=== PATIENT | female | born 1940 | race Caucasian/White ===

== ENCOUNTER 2023-10-19 16:26 | Emergency (ER) | payer MEDICARE, OTHER, SELFPAY ==
[2023-10-19 16:28] VITALS: BP 115/92; BMI 27.3
[2023-10-19 16:49] LABS: % Basophils 0.5 % (0-2); % Eosinophils 2.5 % (0-6); % Immature Granulocytes 0.3 % (0-0.5); % Lymphocytes 27.9 % (20.5-51.1); % Monocytes 8.9 % (1.7-9.3); % Neutrophils 59.9 % (42.2-75.2); Absolute Eosinophils 0.2 10^3/uL (0-0.7); Absolute Lymphocytes 1.7 10^3/uL (1.2-3.4); Absolute Monocytes 0.5 10^3/uL (0.1-0.6); Absolute Neutrophils 3.7 10^3/uL (1.4-6.5); Hematocrit 36.4 % (37.0-47.0); Hemoglobin 12.6 g/dL (12.0-16.0); Mean Corp Hgb Conc. 34.6 g/dL (33.0-37.0); Mean Corpuscular Hgb 31.4 pg (27.0-31.0); Mean Corpuscular Volume 90.8 fL (81.0-99.0); Mean Platelet Volume 12.2 fL (7.4-10.4); Nucleated Red Blood Cells % 0 %; Platelet Count 151 10^3/uL (130-400); Red Blood Cell Count 4.01 10^6/uL (4.20-5.40); Red Cell Dist. Width 13.5 % (11.5-14.5); White Blood Cell Count 6.1 10^3/uL (4.8-10.8)
[2023-10-19 17:03] LABS: ALT (SGPT) 20 U/L (0-35); AST (SGOT) 26 U/L (14-36); Albumin 3.6 g/dl (3.5-5.0); Alkaline Phosphatase 72 U/L (38-126); Blood Urea Nitrogen 31 mg/dl (7-17); Calcium 9.4 mg/dl (8.4-10.2); Carbon Dioxide 27 mmol/L (22-30); Chloride 102 mmol/L (98-107); Estimated Creatinine Clearance 52 ml/min; Glucose 100 mg/dl (70-99); Potassium 3.9 mmol/L (3.5-5.1); Sodium 137 mmol/L (135-145); Total Bilirubin 0.5 mg/dl (0.2-1.3); Total Protein 6.4 g/dl (6.3-8.2); eGFR > 60.00
[2023-10-19 17:12] LABS: Troponin I < 0.012 ng/ml
--- NOTE | 2023-10-19 20:28 | ED.GENMED ---
History of Present Illness
General
Chief Complaint: Cardiac Symptoms
Source: patient and family (Daughter)
Exam Limitations: none
Time Seen by Provider: 10/19/23 19:56
Nursing documentation reviewed up to this point in time: agreed with
Travel History
Have you had any contact with someone who has COVID-19?: No
Do you have any symptoms of coronavirus? Fever > 100 degrees, chills, cough, shortness of breath, sore throat, loss of taste or smell, muscle aches, or headache?: No
History of Present Illness
History of Present Illness:
The patient is an 83-year-old female with a past medical history of high blood pressure who complains of intermittent palpitations for 2 days. Patient reports they occur at rest. She denies chest pain or shortness of breath. Patient denies a
history of A-fib or a flutter. She reports she has had palpitations in the past but they seem more frequent lately.
Past History
Past History
ED Past Medical History: HTN, Hypercholesterolemia and Other (Diverticulitis, arthritis, platelet disorder)
ED Past Surgical History: Gynecological (Hysterectomy, tubal ligation), Orthopedic (Knee MCL repair) and Other (Eyelid surgery)
Social History
Tobacco: Former smoker
Alcohol: None
Drug: None
Living: with family
Employment: Other
Family History
Family History: Other
Review of Systems
Review of Systems
Allergies reviewed?: Yes
All Other Systems: ROS reviewed and negative except as documented in HPI and ROS
Constitutional: Reports no symptoms
EENT: Reports no symptoms
Respiratory: Reports no symptoms
Cardiac: Reports palpitations
ABD/GI: Reports no symptoms
: Reports no symptoms
Musculoskeletal: Reports no symptoms
Skin: Reports no symptoms
Neurological: Reports no symptoms
Endocrine: Reports no symptoms
Hematologic/Lymphatic: Reports no symptoms
Psychiatric: Reports no symptoms
Phy Exam
Physical Exam
Physical Exam:
Physical Exam
General: no apparent distress, not acutely ill. Smiling, conversational
Neck: supple. no meningeal signs. normal psoterior pharynx
Heart: s1/s2. Regular rhythm. Bradycardic
Lungs: no acute respiratory distress. clear bilaterally
Abdomen: normal bowel sounds. not tender. no CVAT
Neuro: alert and oriented. no focal neurological deficits
Skin: no rash
Psychiatric: well kept. interactive and cooperative
Extremities: Trace edema in ankles which patient reports is chronic
Course
Orders/Labs/Results
Orders:
Orders
10/19/23 16:27
Electrocardiogram (*1) Urgent
Reason for Study: Chest Pain
EKG- Treatment ONCE
10/19/23 16:39
Complete Blood Count/With Diff Urgent
Comprehensive Metabolic Panel Urgent
Troponin I Urgent
Abnormal Lab Results
10/19/23
16:39
RBC 4.01 L 10^6/uL
(4.20-5.40)
Hct 36.4 L %
(37.0-47.0)
MCH 31.4 H pg
(27.0-31.0)
MPV 12.2 H fL
(7.4-10.4)
BUN 31 H mg/dl
(7-17)
Glucose 100 H mg/dl
(70-99)
10/19/23 16:39
10/19/23 16:39
Vital Signs
Initial and Last Documented VS:
Initial Vital Signs
Temp Pulse Resp BP Pulse Ox
98.5 F 63 16 115/92 99
10/19/23 16:28 10/19/23 16:28 10/19/23 16:28 10/19/23 16:28 10/19/23 16:28
Last Documented Vital Signs
Temp Pulse Resp BP Pulse Ox
98.5 F 62 15 115/92 99
10/19/23 16:28 10/19/23 20:02 10/19/23 20:02 10/19/23 16:28 10/19/23 20:02
MDM/Problems Addressed
Differential Diagnosis Includes:
PVCs, PACs, a flutter
MDM/Problems Addressed:
Patient presents with acute palpitations
Chronic conditions affecting care: HTN
Acute Exacerbation and/or Progression of Chronic Illness:
Patient was acutely hypertensive when I saw her but she reports she always gets extremely hypertensive and has whitecoat syndrome. Patient has no chest pain or shortness of breath
Acute Exacerbation and/or Progression of Chronic Illness: HTN
*Pulse Oximetry
Patient hypoxic: no
*EKG
Interpreted by ED Provider?: Yes
Interpretation: abnormal
Comparison EKG: changes noted
Rate: normal
Rhythm: sinus
[place]: left axis deviation
Interval: normal interval
QRS Pattern: left vent hypertrophy
Ischemia: non-specific ST changes
*Casting Machine Operator Interpretation
Rate: bradycardiac
Interpretation: normal
Rhythm: sinus
*Critical Care Note
Total Time (30-74mins, 75-104mins- exclusive of procedures): Not Applicable
Data Reviewed
Review of Other/Old Records Reveals: Other (Echo reviewed from 04/18/2023 which was normal)
Source: patient and family
Patient Management
Social determinants of health affecting care: Living situation and Strong social support
Escalation/DeEscalation of care consider admission/obs:
There is no sign of A-fib or a flutter. Patient has no electrolyte abnormality. She denies chest pain or shortness of breath. There is no sign of acute coronary syndrome or heart failure.
ED Attending Note
-
Portions of this chart may have been created with voice recognition software.� Occasional wrong word or��sound alike� substitutions may have occurred due to the inherent limitations of voice recognition software.
Discharge Plan
Departure
Patient Disposition: Home (Routine Discharge)
Date of Disposition: 10/19/23
Time of Disposition: 20:36
Patient with high blood pressure during this ER visit?: Yes
Condition: Good
Covid-19: Not Applicable
Discharge Problem:
Palpitations
Instructions: Palpitations ED
Prescriptions:
No Action
ascorbic acid (vitamin C) [Vitamin C] 1,000 MG tablet
1,000 mg PO BID
calcium carbonate-vitamin D3 1 UDTAB tablet
1 tab PO BID
omega-3 fatty acids-fish oil 1 EACH capsule
1 cap PO DAILY
multivitamin with folic acid [Tab-A-Ced] 1 TABLET tablet
1 tab PO DAILY
Hydrochlorothiazide
DAILY
Patient Comments:
pt not sure of dose
Lisinopril
DAILY
Patient Comments:
pt thinks it 10 or 20 mgs
coenzyme [id number]-aijvyng E 1 CAP capsule
1 cap PO DAILY
Gugu Lipids
1 tab DAILY
L-Lysine
1 tab DAILY
Magnesium
1 tab DAILY
Patient Comments:
pt doesnt know doses of most vitamins
amoxicillin-pot clavulanate 1 TABLET tablet
1 tab PO Q12 Qty: 19 0RF
Referrals:
Herb Hernandez MD [Active] - (Call if palpitations continue)
Adri Bernal CRNP [Family Provider] -
Interventions
Interventions:
*Risk Screen - Suicide Last Done: 10/19/23 16:28
*Neglect/Abuse Screening Last Done: 10/19/23 16:28
ED- Fall Risk Assessment Last Done: 10/19/23 20:03
*ED COVID-19 Vaccine History Last Done: 10/19/23 16:28
ED- Pulmonary Assessment Last Done: 10/19/23 20:03
ED- Cardiac Assessment Last Done: 10/19/23 20:03
[2023-10-19 20:46] VITALS: BP 155/87
== END 2023-10-19 20:52 | disposition home or self-care (01) ==
LOC: EMR 16:26
PROVIDERS: Emergency Medicine; EMERGENCY PHYSICIAN Emergency Medicine; FAMILY PHYSICIAN Nurse Practitioner
DX: R00.2 Palpitations (principal); I10 Essential (primary) hypertension; Z87.891 Personal history of nicotine dependence
CPT/HCPCS: 99284; 80053; 84484; 85025; 93005

== ENCOUNTER → 2024-03-02 12:43 | Outpatient (REF) | payer MEDICARE, OTHER, SELFPAY | LOC: HWRAD 12:43 | PROVIDERS: ATTENDING PHYSICIAN Nurse Practitioner | DX: Z12.31 Encounter for screening mammogram for malignant neoplasm of breast (principal); D69.6 Thrombocytopenia, unspecified; M85.80 Other specified disorders of bone density and structure, unspecified site; M85.89 Other specified disorders of bone density and structure, multiple sites | CPT/HCPCS: 77063; 77067; 77080 ==

== ENCOUNTER → 2024-04-02 06:53 | Outpatient (REF) | payer MEDICARE, OTHER, SELFPAY ==
[2024-04-02 07:28] LABS: Platelet Count 132 10^3/uL (130-400)
[2024-04-02 08:01] LABS: ALT (SGPT) 20 U/L (0-35); AST (SGOT) 30 U/L (14-36); Albumin 3.9 g/dl (3.5-5.0); Alkaline Phosphatase 85 U/L (38-126); Blood Urea Nitrogen 17 mg/dl (7-17); Calcium 9.2 mg/dl (8.4-10.2); Carbon Dioxide 33 mmol/L (22-30); Chloride 103 mmol/L (98-107); Glucose 103 mg/dl (70-99); HDL Cholesterol 41 mg/dl; LDL Cholesterol, Calculated 118 mg/dl; Potassium 3.8 mmol/L (3.5-5.1); Sodium 140 mmol/L (135-145); Total Bilirubin 0.6 mg/dl (0.2-1.3); Total Cholesterol 208 mg/dl (50-199); Total Protein 6.6 g/dl (6.3-8.2); Triglyceride 247 mg/dl (10-149); Very Low Density Lipoprotein 49 mg/dl (0-30)
[2024-04-02 09:14] LABS: Glycohemoglobin (HgbA1c) 5.9 % (4.0-5.6)
== END ==
LOC: REG 06:53
PROVIDERS: ATTENDING PHYSICIAN Nurse Practitioner
DX: E78.2 Mixed hyperlipidemia (principal); I10 Essential (primary) hypertension; R73.03 Prediabetes; D69.6 Thrombocytopenia, unspecified
CPT/HCPCS: 36415; 80053; 80061; 83036; 85049

== ENCOUNTER → 2024-05-18 12:26 | Outpatient (REF) | payer MEDICARE, OTHER, SELFPAY | LOC: RAD 12:26 | PROVIDERS: ATTENDING PHYSICIAN Nurse Practitioner | DX: R60.0 Localized edema (principal); L81.9 Disorder of pigmentation, unspecified | CPT/HCPCS: 93970 ==

== ENCOUNTER → 2025-03-11 09:31 | Outpatient (REF) | payer MEDICARE, OTHER, SELFPAY | LOC: HWRCS 09:31 | DX: R60.0 Localized edema (principal) | CPT/HCPCS: 93306 ==

== ENCOUNTER → 2025-03-25 07:19 | Outpatient (REF) | payer MEDICARE, OTHER, SELFPAY ==
[2025-03-25 08:16] LABS: Hematocrit 34.0 % (37.0-47.0); Hemoglobin 10.7 g/dL (12.0-16.0); Mean Corp Hgb Conc. 31.5 g/dL (33.0-37.0); Mean Corpuscular Volume 89.7 fL (81.0-99.0); Nucleated Red Blood Cells % 0 %; Platelet Count 138 10^3/uL (130-400); Red Cell Dist. Width 14.6 % (11.5-14.5)
[2025-03-25 08:45] LABS: ALT (SGPT) 19 U/L (0-35); AST (SGOT) 23 U/L (14-36); Albumin 3.7 g/dl (3.5-5.0); Alkaline Phosphatase 64 U/L (38-126); Blood Urea Nitrogen 19 mg/dl (7-17); Calcium 9.3 mg/dl (8.4-10.2); Carbon Dioxide 27 mmol/L (22-30); Chloride 110 mmol/L (98-107); Glucose 99 mg/dl (70-99); HDL Cholesterol 35 mg/dl; LDL Cholesterol, Calculated 98 mg/dl; Potassium 4.3 mmol/L (3.5-5.1); Sodium 141 mmol/L (135-145); Total Protein 6.4 g/dl (6.3-8.2); Very Low Density Lipoprotein 40 mg/dl (0-30); eGFR > 60.00
[2025-03-25 08:53] LABS: Glycohemoglobin (HgbA1c) 5.9 % (4.0-5.6)
== END ==
LOC: REG 07:19
DX: I10 Essential (primary) hypertension (principal); E78.2 Mixed hyperlipidemia; R73.03 Prediabetes; N18.31 Chronic kidney disease, stage 3a; R60.0 Localized edema; R06.09 Other forms of dyspnea
CPT/HCPCS: 36415; 80053; 80061; 83036; 83880; 84443; 85025

== ENCOUNTER 2025-03-29 08:42 | Emergency (ER) | payer MEDICARE, OTHER, SELFPAY ==
[2025-03-29] VITALS (7 sets, daily range): BP systolic 137–203; BP diastolic 60–108
--- NOTE | 2025-03-29 10:20 | ED.GENMED ---
History of Present Illness
General
Chief Complaint: Blood Pressure Problem
Source: patient and family (son)
Exam Limitations: none
Time Seen by Provider: 03/29/25 09:57
History of Present Illness
History of Present Illness:
Note:
CHIEF COMPLAINT(S)
High blood pressure.
HISTORY OF PRESENT ILLNESS
The patient is an 84-year-old female who presents with elevated blood pressure, noted to be approximately 200/100 mmHg during a stress test at a cardiologists office, which was subsequently aborted due to the elevated readings. The distance education coordinator,
Guillaume, was monitoring her issues and adjusted her medications. Despite this, her blood pressure remained high when she checked it the following morning, prompting her call to the primary care physician who recommended an evaluation at the emergency
department. The patient denies any chest pain but reports mild exertional dyspnea, possibly related to anemia, as recent blood work indicated low hemoglobin levels. There is no known history of black or bloody stools, although she has noticed some
darker stools.
MEDICATIONS
The patient was prescribed new antihypertensive medication, which she was unable to spanish moss picker due to unavailability.
REVIEW OF SYSTEMS
- Cardiovascular: High blood pressure, no chest pain.
- Respiratory: Mild exertional dyspnea.
- Gastrointestinal: Reports of darker stools but denies significant changes or other gastrointestinal symptoms.
PHYSICAL EXAM
- Nursing notes reviewed and vital signs reviewed.
- Blood Pressure: 182/84 mmHg.
- No acute respiratory distress noted.
- Ear, Nose, and Tongue: Normal.
- Cardiovascular: First and second heart sounds present, no third or fourth heart sound.
- Respiratory: Lungs clear to auscultation bilaterally.
- Abdomen: Soft, non-tender, and non-distended.
- Rectal exam: Guaiac-negative brown stool, external hemorrhoids present without bleeding or tenderness.
- Neurological: Oriented to person, place, and time.
- Extremities: Mild tibial edema noted.
PROBLEM LIST
Acute Problems:
1. Hypertension with recent severe elevation.
2. Anemia with exertional dyspnea.
3. Darker stool, pending further evaluation.
Chronic Problems:
1. Hypertension.
PLAN
1. Monitor patients blood pressure in the emergency department and assess the need for any urgent intravenous antihypertensive medication.
2. Repeat blood work to assess current hemoglobin levels and check cardiac biomarkers and chest X-ray.
3. Advise the patient regarding follow-up with her distance education coordinator for her blood pressure management.
4. Conduct a rectal exam to rule out gastrointestinal bleeding as a cause of anemia.
5. Recommend the patient contact her parcel post delivery to evaluate a suspicious mole on the back before her scheduled appointment in July.
DIFFERENTIAL DIAGNOSIS
The Differential Diagnosis includes, in no particular order and is not limited to:
1. Essential hypertension
2. Anemia of chronic disease
3. Gastrointestinal bleeding
4. Atypical myocardial ischemia
5. Congestive heart failure
6. Pulmonary embolism
7. Chronic obstructive pulmonary disease exacerbation
8. Renal artery stenosis
9. Adrenal mass (pheochromocytoma)
10. Hyperthyroidism
CARE-UPDATE
03/29/25 - 14:53
Blood pressure responded well to IV hydralazine. No further laboratory tests required today. Patient is stable and ready for discharge.
Disposition:
SUMMARY OF ENCOUNTER
The patient, an 84-year-old female, presented to the emergency department with significantly elevated blood pressure, initially recorded at 200/100 mmHg during a stress test. Despite medication adjustments by her distance education coordinator, her blood pressure
readings remained high, prompting a visit to the ED. She reported mild exertional dyspnea but denied chest pain. Blood pressure was monitored and achieved stability with treatment.
DISPOSITION
Discharged home.
ASSESSMENT
Hypertensive urgency.
EMERGENCY TREATMENTS ADMINISTERED
Administered intravenous hydralazine, which effectively lowered the blood pressure.
PLAN
The patient was advised to follow up with her distance education coordinator for blood pressure management and monitoring.
INDEPENDENT REVIEW OF LABS AND INTERPRETATION OF TESTS
My independent review indicated that while anemia and darkened stools were notable concerns, no immediate lab tests were required today as the patient was stable.
MEDICATION RECONCILIATION
Continued adherence to prescribed antihypertensive medication was highlighted, noting the need to fill the new prescription not yet picked up.
MEDICAL DECISION MAKING
- Number and Complexity of Problems Addressed: Chronic conditions affecting care include hypertension, anemia, and potential gastrointestinal concerns as identified by darker stools.
- Data:
- Category 1: Reviewed outpatient records and previous lab findings indicating anemia.
- Category 2: My independent interpretation of blood pressure readings indicated stability post-treatment.
- Category 3: Discussion with distance education coordinator recommended for continued management.
- Risk: Prescription medication was considered and adjusted, necessitating close follow-up due to the nature of the presenting complaint.
DIAGNOSIS
Hypertensive Urgency (I16.0).
Past History
Past History
ED Past Medical History: HTN, Hypercholesterolemia and Other (Diverticulitis, arthritis, platelet disorder)
ED Past Surgical History: Gynecological (Hysterectomy, tubal ligation), Orthopedic (Knee MCL repair) and Other (Eyelid surgery)
Social History
Tobacco: Former smoker
Alcohol: None
Drug: None
Living: with family
Employment: Other
Family History
Family History: Other
Phy Exam
Physical Exam
Physical Exam:
.
Course
Orders/Labs/Results
Orders:
Orders
03/29/25 12:28
IV Insert/Care/Rem.- Treatment PRN
HydrALAZINE [Apresoline] 10 mg IV NOW STA
03/29/25 14:29
HydrALAZINE [Apresoline] 10 mg IV NOW STA
Vital Signs
Initial and Last Documented VS:
Initial Vital Signs
Temp Pulse Resp BP Pulse Ox
98.6 F 65 18 200/104 97
03/29/25 08:52 03/29/25 08:52 03/29/25 08:52 03/29/25 08:52 03/29/25 08:52
Last Documented Vital Signs
Temp Pulse Resp BP Pulse Ox
98.6 F 77 17 137/60 98
03/29/25 08:52 03/29/25 14:50 03/29/25 14:50 03/29/25 14:50 03/29/25 14:50
*Pulse Oximetry
SaO2: 98
Oxygen Mode of Delivery: Room air
Patient hypoxic: no
*Critical Care Note
Total Time (30-74mins, 75-104mins- exclusive of procedures): 32
comment:
Critical care statement: A total of 32 minutes of critical care time was provided for this patient. This includes management of unstable vital signs, evaluation of the patient at bedside, reviewing the patient's pertinent medical records, discussion
with consultants, review of old EKGs and review of pertinent medical records. This time with separate from time utilized to perform the aforementioned documented procedures
ED Attending Note
-
Portions of this chart may have been created with voice recognition software.� Occasional wrong word or��sound alike� substitutions may have occurred due to the inherent limitations of voice recognition software.
Discharge Plan
Departure
Patient Disposition: Home (Routine Discharge)
Date of Disposition: 03/29/25
Time of Disposition: 14:58
Patient with high blood pressure during this ER visit?: Yes
Condition: Good
Discharge Problem:
Hypertensive urgency
Instructions: High Blood Pressure (DC), BLOOD PRESSURE
Prescriptions:
No Action
ascorbic acid (vitamin C) [Vitamin C] 1,000 MG tablet
1,000 mg PO BID
calcium carbonate-vitamin D3 1 UDTAB tablet
1 tab PO BID
omega-3 fatty acids-fish oil 1 EACH capsule
1 cap PO DAILY
multivitamin with folic acid [Tab-A-Ced] 1 TABLET tablet
1 tab PO DAILY
Hydrochlorothiazide
DAILY
Patient Comments:
pt not sure of dose
Lisinopril
DAILY
Patient Comments:
pt thinks it 10 or 20 mgs
coenzyme [id number]-vteyadw E 1 CAP capsule
1 cap PO DAILY
Gugu Lipids
1 tab DAILY
L-Lysine
1 tab DAILY
Magnesium
1 tab DAILY
Patient Comments:
pt doesnt know doses of most vitamins
amoxicillin-pot clavulanate 1 TABLET tablet
1 tab PO Q12 Qty: 19 0RF
Referrals:
Chas Goodwin CRNP [Family Provider] - Call in 1-3 days for appt
Interventions
Interventions:
*Risk Screen - Suicide Last Done: 03/29/25 09:53
*General Assessment Last Done: 03/29/25 09:52
*Neglect/Abuse Screening Last Done: 03/29/25 09:53
*ED- Fall Risk Assessment Last Done: 03/29/25 09:52
*ED COVID-19 Vaccine History Last Done: 03/29/25 08:52
ED- Cardiac Assessment Last Done: 03/29/25 09:52
ED- Neurological Assessment Last Done: 03/29/25 09:52
ED- Pulmonary Assessment Last Done: 03/29/25 09:52
Discharge Date and Time
Print Language: CHINESE
[2025-03-29] MEDS: APRESOLINE 10 MG IV ×2 (13:02→14:30)
== END 2025-03-29 15:25 | disposition home or self-care (01) ==
LOC: EMR 08:42
PROVIDERS: EMERGENCY PHYSICIAN Emergency Medicine
DX: I16.0 Hypertensive urgency (principal); I10 Essential (primary) hypertension; D64.9 Anemia, unspecified; Z87.891 Personal history of nicotine dependence
CPT/HCPCS: 99284; 96374; 96376

== ENCOUNTER → 2025-04-01 06:49 | Outpatient (REF) | payer MEDICARE, OTHER, SELFPAY ==
[2025-04-01 08:00] LABS: Hematocrit 35.3 % (37.0-47.0); Hemoglobin 11.2 g/dL (12.0-16.0); Mean Corp Hgb Conc. 31.7 g/dL (33.0-37.0); Mean Corpuscular Volume 88.3 fL (81.0-99.0); Nucleated Red Blood Cells % 0 %; Platelet Count 139 10^3/uL (130-400); Red Cell Dist. Width 14.6 % (11.5-14.5); Reticulocyte Count 0.9 % (0.4-2.8)
[2025-04-01 08:38] LABS: ALT (SGPT) 19 U/L (0-35); AST (SGOT) 24 U/L (14-36); Albumin 3.9 g/dl (3.5-5.0); Alkaline Phosphatase 63 U/L (38-126); Blood Urea Nitrogen 23 mg/dl (7-17); Calcium 9.5 mg/dl (8.4-10.2); Carbon Dioxide 28 mmol/L (22-30); Chloride 107 mmol/L (98-107); Glucose 100 mg/dl (70-99); Iron 59 ug/dl (37-170); Potassium 4.2 mmol/L (3.5-5.1); Sodium 139 mmol/L (135-145); Total Protein 6.7 g/dl (6.3-8.2); eGFR > 60.00
[2025-04-01 08:42] LABS: C-Reactive Protein < 5.00 mg/L (0.0-10.00)
[2025-04-01 08:47] LABS: Total Iron Binding Capacity 484 ug/dl (265-497)
[2025-04-01 09:20] LABS: Ferritin 8.0 ng/ml (11.1-264.0)
[2025-04-01 09:51] LABS: Folate > 20.0 ng/ml (2.76-20); Vitamin B12 374 pg/ml (239-931)
== END ==
LOC: REG 06:49
DX: D64.9 Anemia, unspecified (principal); I10 Essential (primary) hypertension
CPT/HCPCS: 36415; 80053; 82607; 82728; 82746; 83021; 83540; 83550; 85025; 85045; 85652; 86140

== ENCOUNTER → 2025-04-12 08:27 | Outpatient (REF) | payer MEDICARE, OTHER, SELFPAY | LOC: RCS 08:27 | PROVIDERS: ATTENDING PHYSICIAN Nuclear Medicine Nuclear Cardiology | DX: I10 Essential (primary) hypertension (principal); R94.31 Abnormal electrocardiogram [ECG] [EKG] | CPT/HCPCS: 78452; 93017; A9500; J2785 ==

== ENCOUNTER → 2025-04-24 09:43 | Outpatient (REF) | payer MEDICARE, OTHER, SELFPAY | LOC: HWWDC 09:43 | DX: Z12.31 Encounter for screening mammogram for malignant neoplasm of breast (principal) | CPT/HCPCS: 77063; 77067 ==

== ENCOUNTER → 2025-07-03 07:26 | Outpatient (REF) | payer MEDICARE, OTHER, SELFPAY ==
[2025-07-03 08:32] LABS: Hematocrit 36.3 % (37.0-47.0); Hemoglobin 12.2 g/dL (12.0-16.0); Mean Corp Hgb Conc. 33.6 g/dL (33.0-37.0); Mean Corpuscular Volume 92.1 fL (81.0-99.0); Nucleated Red Blood Cells % 0 %; Platelet Count 136 10^3/uL (130-400); Red Cell Dist. Width 17.6 % (11.5-14.5)
[2025-07-03 10:00] LABS: ALT (SGPT) 21 U/L (0-35); AST (SGOT) 27 U/L (14-36); Albumin 4.1 g/dl (3.5-5.0); Alkaline Phosphatase 67 U/L (38-126); Blood Urea Nitrogen 32 mg/dl (7-17); Calcium 9.3 mg/dl (8.4-10.2); Carbon Dioxide 27 mmol/L (22-30); Chloride 106 mmol/L (98-107); Glucose 101 mg/dl (70-99); Iron 94 ug/dl (37-170); Potassium 4.5 mmol/L (3.5-5.1); Sodium 139 mmol/L (135-145); Total Protein 6.8 g/dl (6.3-8.2); eGFR 44.36
[2025-07-03 10:09] LABS: Total Iron Binding Capacity 427 ug/dl (265-497)
[2025-07-03 10:20] LABS: Ferritin 30.8 ng/ml (11.1-264.0)
== END ==
LOC: REG 07:26
DX: D50.8 Other iron deficiency anemias (principal); R06.09 Other forms of dyspnea; I10 Essential (primary) hypertension
CPT/HCPCS: 36415; 80053; 82728; 83540; 83550; 85025

== ENCOUNTER → 2025-07-16 11:40 | Outpatient (REF) | payer MEDICARE, OTHER, SELFPAY | LOC: CLAB 11:40 | DX: D50.9 Iron deficiency anemia, unspecified (principal) | CPT/HCPCS: 36415; 83520 ==

== ENCOUNTER → 2025-08-17 07:56 | Outpatient (REF) | payer MEDICARE, OTHER, SELFPAY ==
[2025-08-17 09:53] LABS: Blood Urea Nitrogen 19 mg/dl (7-17); Calcium 9.5 mg/dl (8.4-10.2); Carbon Dioxide 29 mmol/L (22-30); Chloride 105 mmol/L (98-107); Glucose 93 mg/dl (70-99); Potassium 5.0 mmol/L (3.5-5.1); Sodium 137 mmol/L (135-145); eGFR 55.21
== END ==
LOC: REG 07:56
DX: N17.9 Acute kidney failure, unspecified (principal)
CPT/HCPCS: 36415; 80048

== ENCOUNTER 2025-08-21 06:39 | Day surgery (SDC) | payer MEDICARE, OTHER, SELFPAY | END 2025-08-21 11:29 | disposition home or self-care (01) | LOC: GI 06:39 | PROVIDERS: ATTENDING PHYSICIAN Internal Medicine | DX: D50.9 Iron deficiency anemia, unspecified (principal); K64.8 Other hemorrhoids; K57.30 Diverticulosis of large intestine without perforation or abscess without bleeding; K44.9 Diaphragmatic hernia without obstruction or gangrene; K25.4 Chronic or unspecified gastric ulcer with hemorrhage; K22.2 Esophageal obstruction; K31.89 Other diseases of stomach and duodenum; D12.3 Benign neoplasm of transverse colon; K63.5 Polyp of colon; K21.00 Gastro-esophageal reflux disease with esophagitis, without bleeding; K29.50 Unspecified chronic gastritis without bleeding | CPT/HCPCS: 45385; 43239; 88305; 88341; 88342 ==